=== PATIENT | male | born 1980 | race Caucasian/White ===

== ENCOUNTER 2018-12-11 19:03 | Emergency (ER) | payer OTHER ==
[~2018-12-11] VITALS: Ht 175.3 cm; Wt 70.3 kg
[~2018-12-11 19:03] MED LIST: AMOX500 PO; CLIN150 PO; DIVA500EC; DIVA500EC PO; HYDACE5 PO; LORA.5 PO; LORA2 PO; OXYACE5T PO
[2018-12-11] MEDS ORDERED: CLARITIN10 MG PO (19:09)
== END 2018-12-11 20:50 | disposition home or self-care (01) ==
LOC: ER 19:03
DX: S61.012A Laceration without foreign body of left thumb without damage to nail, initial encounter (principal); X58.XXXA Exposure to other specified factors, initial encounter; Z88.8 Allergy status to other drugs, medicaments and biological substances; Z79.899 Other long term (current) drug therapy; F17.290 Nicotine dependence, other tobacco product, uncomplicated
CPT/HCPCS: 12002; 90471; 90714; 99282-25